=== PATIENT | male | born 1965 | race Caucasian/White ===

== ENCOUNTER → 2019-10-25 | Emergency (ER) | payer OTHER ==
[~2019-10-25] VITALS: Ht 177.8 cm; Wt 93.0 kg
== END | disposition home or self-care (01) ==
LOC: ER 15:52
DX: B34.9 Viral infection, unspecified (principal)

== ENCOUNTER 2020-05-13 13:17 | Emergency (ER) | payer OTHER ==
[~2020-05-13] VITALS: Ht 180.3 cm; Wt 97.5 kg
== END 2020-05-13 15:42 | disposition home or self-care (01) ==
LOC: ER 13:17
DX: U07.1 COVID-19 (principal); R05 Cough; R53.81 Other malaise

== ENCOUNTER 2022-12-12 09:03 | Outpatient (CLI) | payer OTHER ==
[~2022-12-12] VITALS: Ht 180.3 cm; Wt 90.7 kg
== END 2022-12-12 09:19 | disposition home or self-care (01) ==
LOC: LAB 09:03
PROVIDERS: ATTEND Orthopaedic Surgery
DX: D64.89 Other specified anemias (principal); E88.89 Other specified metabolic disorders; D68.8 Other specified coagulation defects; N39.0 Urinary tract infection, site not specified; Z22.322 Carrier or suspected carrier of Methicillin resistant Staphylococcus aureus; E11.9 Type 2 diabetes mellitus without complications; I49.9 Cardiac arrhythmia, unspecified; I10 Essential (primary) hypertension; Z76.89 Persons encountering health services in other specified circumstances

== ENCOUNTER 2022-12-20 10:30 | Inpatient (IN) | payer OTHER ==
[2022-12-24] MEDS ORDERED: ROSUVASTATIN CA20 MG (09:28)
[2022-12-24] MEDS ORDERED: XARELTO10 M1 (09:28)
[2022-12-24] MEDS ORDERED: FENOFIBRATE145 MG (09:28)
== END 2022-12-26 17:27 | DRG 470 ==
LOC: O/R 12-24 05:20 → SURG 12-24 07:00
PROVIDERS: ADMIT Orthopaedic Surgery; ATTEND Orthopaedic Surgery
PROC: 0SRD0J9 Replacement of Left Knee Joint with Synthetic Substitute, Cemented, Open Approach (ICD-10-PCS; principal; 2022-12-24 07:00)
DX: M17.12 Unilateral primary osteoarthritis, left knee (principal); Z96.652 Presence of left artificial knee joint; Z20.822 Contact with and (suspected) exposure to COVID-19

== ENCOUNTER 2023-01-02 09:59 | Outpatient (CLI) | payer OTHER ==
[~2023-01-02 09:59] MED LIST: FENOFIBRATE145 MG; ROSUVASTATIN CA20 MG; XARELTO10 M1
== END 2023-01-02 10:00 | disposition home or self-care (01) ==
LOC: NUCLEAR 09:59
PROVIDERS: ATTEND Orthopaedic Surgery
DX: I87.2 Venous insufficiency (chronic) (peripheral) (principal); M79.605 Pain in left leg

== ENCOUNTER 2023-09-05 09:11 | Outpatient (CLI) | payer OTHER ==
[2023-09-05 10:33] LABS: COL EPI 160 SECONDS (82-175)
== END 2023-09-05 13:43 | disposition home or self-care (01) ==
LOC: RAD 09:11
PROVIDERS: ATTEND Orthopaedic Surgery
DX: D64.9 Anemia, unspecified (principal); D68.8 Other specified coagulation defects; N39.0 Urinary tract infection, site not specified; E11.9 Type 2 diabetes mellitus without complications; Z20.822 Contact with and (suspected) exposure to COVID-19; E88.89 Other specified metabolic disorders; Z76.89 Persons encountering health services in other specified circumstances; I10 Essential (primary) hypertension

== ENCOUNTER → 2023-09-10 07:10 | Outpatient (CLI) | payer OTHER ==
[2023-09-10 07:50] LABS: INR 1.05; PARTIAL THROMBOPLASTIN TIME 26.6 SECONDS (22.0-34.0)
[2023-09-10 08:03] LABS: ALBUMIN 3.8 gm/dL (3.4-5.0); BILIRUBIN TOTAL 0.49 mg/dL (0.3-1.2); CALCIUM 9.1 mg/dL (8.5-10.1); CREATININE SERUM 1.06 mg/dL (0.70-1.30); GFR 72.01; GLOBULINA 3.2 G/DL (2.4-3.5); POTASSIUM 4.88 mEq/L (3.5-5.1)
[2023-09-10 09:49] LABS: HEMATOCRIT 44.2 % (39.0-48.0); HEMOGLOBIN 15.2 g/dL (13-16.00); MEAN CELL VOLUME 85.5 fL (80.0-100.00); MEAN CORPUSCULAR HEMOGLOBIN 29.5 pg (27.00-32.0); MEAN CORPUSCULAR HGB CONC 34.5 g/dl (32.0-36.0); PLATELET COUNT 205 K/uL (150-450); RED BLOOD COUNT 5.17 M/uL (4.00-6.00); RED CELL DISTRIBUTION WIDTH 13.8 % (11.5-14.5)
== END | disposition home or self-care (01) ==
LOC: LAB 07:10
PROVIDERS: ATTEND Internal Medicine
DX: D64.9 Anemia, unspecified (principal); I10 Essential (primary) hypertension

== ENCOUNTER 2023-09-18 12:58 | Inpatient (IN) | payer OTHER ==
[~2023-09-18] VITALS: Ht 177.8 cm; Wt 97.5 kg
[2023-09-22] MEDS ORDERED: CEFAZOLIN SODIUM 1,000 MG VIAL ONE ×3 (09:45→16:54)
[2023-09-22] MEDS ORDERED: VANCOMYCIN HCL 1,000 MG VIAL ONE ×2 (09:50→10:20)
[2023-09-22] MEDS ORDERED: TRANEXAMIC ACID 100MG/1ML (1000MG) AMPUL IV ONE (09:50)
[2023-09-22] MEDS ORDERED: POLYMYXIN B SULFATE 500,000 U VIAL ONE (09:50)
[2023-09-22] MEDS ORDERED: KETOROLAC TROMETHAMINE 60 MG VIAL IM ONE (09:53)
[2023-09-22] MEDS ORDERED: LIDOCAINE HCL/EPINEPHRINE 10MG/ML 1% 50ML IJ ONE (09:54)
[2023-09-22] MEDS ORDERED: EPINEPHRINE HCL/PF 1 MG/ML AMPUL ONE (09:54)
[2023-09-22] MEDS ORDERED: BUPIVACAINE HCL/PF 0.5% 30ML ML ONE ×2 (09:54→14:00)
[2023-09-22] MEDS ORDERED: MORPHINE SULFATE 4 MG/ML VIAL IV SCH (11:30)
[2023-09-22] MEDS ORDERED: BUPIVACAINE HCL 30 ML VIAL IJ SCH ×2 (11:30→15:00)
[2023-09-22] MEDS ORDERED: ISOPROPYL ALCOHOL 30 ML OUNCE TOP SCH (11:30)
[2023-09-22] MEDS ORDERED: TRANEXAMIC ACID 100MG/1ML (1000MG) AMPUL IV SCH ×2 (11:30)
[2023-09-22] MEDS ORDERED: POLYMYXIN B SULFATE 500,000 U VIAL IR SCH (11:30)
[2023-09-22] MEDS ORDERED: LIDOCAINE HCL/EPINEPHRINE 30 ML ML IJ SCH (11:30)
[2023-09-22] MEDS ORDERED: VANCOMYCIN HCL 1,000 MG VIAL IR SCH (11:30)
[2023-09-22] MEDS ORDERED: EPINEPHRINE HCL/PF 1 MG/ML AMPUL IR SCH (11:30)
[2023-09-22] MEDS ORDERED: CEFAZOLIN SODIUM 1,000 MG VIAL IV SCH ×2 (11:30→17:00)
[2023-09-22] MEDS ORDERED: KETOROLAC TROMETHAMINE 60 MG VIAL IM SCH (11:30)
[2023-09-22] MEDS ORDERED: PANTOPRAZOLE SODIUM 40 MG TABLET.DR PO SCH (15:50)
[2023-09-22] MEDS ORDERED: ONDANSETRON HCL 2 MG/ML VIAL IV PRN (16:00)
[2023-09-22] MEDS ORDERED: ONDANSETRON 4 MG TAB.RAPDIS PO PRN (16:00)
[2023-09-22] MEDS ORDERED: TRAMADOL HCL 50 MG TABLET PO PRN (16:00)
[2023-09-22] MEDS ORDERED: SODIUM CHLORIDE 0.45 % 1,000 ML IV SCH (16:00)
[2023-09-22] MEDS ORDERED: MEPERIDINE HCL/PF 50 MG/ML VIAL IM PRN (16:00)
[2023-09-22] MEDS ORDERED: PROMETHAZINE HCL 50 MG/ML AMPUL IM PRN (16:00)
[2023-09-22] MEDS ORDERED: ACETAMINOPHEN 325 MG TABLET PO SCH (17:00)
[2023-09-22] MEDS ORDERED: CELECOXIB 200 MG CAPSULE PO SCH (17:00)
[2023-09-22] MEDS ORDERED: KETOROLAC TROMETHAMINE 10 MG TABLET PO SCH (21:00)
[2023-09-23 06:40] LABS: HEMATOCRIT 34.8 % (39.0-48.0); HEMOGLOBIN 12.3 g/dL (13-16.00); MEAN CORPUSCULAR HGB CONC 35.3 g/dl (32.0-36.0); PLATELET COUNT 181 K/uL (150-450); RED BLOOD COUNT 4.09 M/uL (4.00-6.00); RED CELL DISTRIBUTION WIDTH 13.9 % (11.5-14.5)
[2023-09-23] MEDS ORDERED: RIVAROXABAN 10 MG TAB PO SCH (09:00)
[2023-09-24] MEDS ORDERED: SENNA/DOCUSATE SODIUM 1 TAB TABLET PO SCH (09:00)
== END 2023-09-23 14:55 | disposition home or self-care (01) | DRG 467 ==
LOC: O/R 09-22 06:05 → SURH 09-22 07:00
PROVIDERS: ADMIT Orthopaedic Surgery; ATTEND Orthopaedic Surgery
PROC: 0SRC0JZ Replacement of Right Knee Joint with Synthetic Substitute, Open Approach (ICD-10-PCS; 2023-09-22)
PROC: 0QUD0JZ Supplement Right Patella with Synthetic Substitute, Open Approach (ICD-10-PCS; 2023-09-22)
PROC: 0SPC0JZ Removal of Synthetic Substitute from Right Knee Joint, Open Approach (ICD-10-PCS; principal; 2023-09-22 07:00)
DX: M17.11 Unilateral primary osteoarthritis, right knee (principal); T84.84XA Pain due to internal orthopedic prosthetic devices, implants and grafts, initial encounter; Z20.822 Contact with and (suspected) exposure to COVID-19

== ENCOUNTER 2023-09-30 09:13 | Outpatient (CLI) | payer OTHER | END 2023-09-30 09:14 | disposition home or self-care (01) | LOC: NUCLEAR 09:13 | PROVIDERS: ATTEND Orthopaedic Surgery | DX: I87.2 Venous insufficiency (chronic) (peripheral) (principal); M79.604 Pain in right leg ==

== ENCOUNTER → 2024-03-22 | Outpatient (CLI) | payer OTHER | END | disposition home or self-care (01) | LOC: SONOGRAMA 11:12 | PROVIDERS: ATTEND Pathology Anatomic Pathology | DX: D34 Benign neoplasm of thyroid gland (principal); E07.89 Other specified disorders of thyroid; E04.1 Nontoxic single thyroid nodule ==

== ENCOUNTER 2024-07-24 23:54 | Emergency (ER) | payer OTHER ==
[~2024-07-24] VITALS: Ht 180.3 cm; Wt 98.4 kg
[2024-07-25 03:08] LABS: HEMATOCRIT 45.2 % (39.0-48.0); HEMOGLOBIN 15.6 g/dL (13-16.00); MEAN CELL VOLUME 88.2 fL (80.0-100.00); MEAN CORPUSCULAR HEMOGLOBIN 30.4 pg (27.00-32.0); MEAN CORPUSCULAR HGB CONC 34.5 g/dl (32.0-36.0); PLATELET COUNT 193 K/uL (150-450); RED BLOOD COUNT 5.12 M/uL (4.00-6.00); RED CELL DISTRIBUTION WIDTH 13.7 % (11.5-14.5)
[2024-07-25 03:59] LABS: ALBUMIN 3.6 gm/dL (3.4-5.0); BILIRUBIN TOTAL 0.5 mg/dL (0.3-1.2); CALCIUM 8.9 mg/dL (8.5-10.1); CREATININE SERUM 1.12 mg/dL (0.70-1.30); GFR 67.34; GLOBULINA 3.4 G/DL (2.4-3.5); POTASSIUM 4.58 mEq/L (3.5-5.1)
== END 2024-07-25 04:25 | disposition home or self-care (01) ==
LOC: ER 23:57
PROVIDERS: General Practice
DX: M62.838 Other muscle spasm (principal); R07.89 Other chest pain